=== PATIENT | male | born 1950 | race Two or more races ===

== ENCOUNTER 2020-11-26 01:33 | Emergency (ER) | payer MEDICARE, OTHER ==
[~2020-11-26] VITALS: Ht 167.6 cm; Wt 77.0 kg
[2020-11-26] MEDS ORDERED: ONDANSETRON 4MG ODT PO STA (02:06)
[2020-11-26] MEDS: ACETAMINOPHEN 325MG TABLET PO STA ×2 (02:21→02:28)
[2020-11-26 02:36] LABS: BASOPHILS % 0.8 % (0.0-2.0); EOSINOPHILS % 1.7 % (0.0-5.0); HEMATOCRIT. 40.1 % (42.0-52.0); HEMOGLOBIN. 13.6 g/dL (14.0-18.0); LYMPHOCYTES % 26.3 % (20.0-50.0); MEAN CORPUSCULAR HEMOGLOBIN 30.6 pg (28.0-32.0); MEAN CORPUSCULAR VOLUME 90.3 fL (80.0-94.0); MEAN PLATELET VOLUME 8.3 fl (7.4-10.4); MONOCYTES % 8.3 % (2.0-8.0); NEUTROPHILS % 62.9 % (40.0-76.0); PLATELET 323 x1000/uL (130-400); RED BLOOD CELL COUNT 4.44 mill/uL (4.7-6.1); RED CELL DISTRIBUTION WIDTH 13.4 % (11.6-14.6)
[2020-11-26 02:40] LABS: CHLORIDE 103 mEq/L (98-107)
[2020-11-26 02:44] LABS: PROTHROMBIN TIME 10.5 sec (9.6-11.0)
[2020-11-26 02:45] LABS: ETHANOL BLOOD < 10 mg/dL
[2020-11-26] MEDS ORDERED: HYDRALAZINE 20MG/ML VIAL IV ONE (02:45)
[2020-11-26 03:15] VITALS: BP 182/94
== END 2020-11-26 03:15 | disposition left against medical advice (07) ==
LOC: ER 01:33
DX: H57.11 Ocular pain, right eye (principal); I10 Essential (primary) hypertension
CPT/HCPCS: 36415; 80053; 80320; 85025; 85610; 86850; 86900; 86901; 99283; Q0162; G0480

== ENCOUNTER 2022-05-18 23:49 | Emergency (ER) | payer MEDICARE, OTHER ==
[~2022-05-18] VITALS: Ht 170.2 cm; Wt 78.9 kg
[2022-05-19 04:00] VITALS: BP 198/99
[2022-05-19] MEDS ORDERED: HYDROCODONE/ACETAMINOPHEN 5/325MG TABLET PO ONE (04:00)
== END 2022-05-19 04:41 | disposition home or self-care (01) ==
LOC: ER 23:49
DX: S20.211A Contusion of right front wall of thorax, initial encounter (principal); E11.9 Type 2 diabetes mellitus without complications; W01.0XXA Fall on same level from slipping, tripping and stumbling without subsequent striking against object, initial encounter; Y93.89 Activity, other specified; Y92.018 Other place in single-family (private) house as the place of occurrence of the external cause
CPT/HCPCS: 99283

== ENCOUNTER 2024-08-23 09:23 | Emergency (ER) | payer BC, MEDICAID, MEDICARE ==
[~2024-08-23] VITALS: Ht 167.6 cm; Wt 77.0 kg
[2024-08-23 09:24] VITALS: O2SAT 100
[2024-08-23 09:33] VITALS: BP 197/104; PULSE 85; RESP 16; TEMP 98.6; O2SAT 100
[2024-08-23 10:20] LABS: BASOPHILS % 0.9 % (0.0-2.0); HEMATOCRIT. 38.8 % (42.0-52.0); LYMPHOCYTES % 22.6 % (20.0-50.0); MEAN CORPUSCULAR HEMOGLOBIN 30.6 pg (28.0-32.0); MEAN CORPUSCULAR HGB CONC 33.5 g/dL (31.0-37.0); MEAN CORPUSCULAR VOLUME 91.4 fL (80.0-94.0); MEAN PLATELET VOLUME 8.7 fl (7.4-10.4); MONOCYTES % 7.8 % (2.0-8.0); NEUTROPHILS % 65.7 % (40.0-76.0); PLATELET 357 x1000/uL (130-400); RED BLOOD CELL COUNT 4.25 mill/uL (4.7-6.1); RED CELL DISTRIBUTION WIDTH 14.4 % (11.6-14.6)
[2024-08-23 10:26] LABS: CHLORIDE 106 mEq/L (98-107); POTASSIUM 4.4 mEq/L (3.5-5.1); SODIUM 140 mEq/L (136-145)
[2024-08-23 10:27] LABS: CARBON DIOXIDE 27 mEq/L (21-32)
[2024-08-23 10:28] LABS: CALCIUM 9.6 mg/dL (8.7-10.4)
[2024-08-23 10:32] LABS: CREATININE 1.3 mg/dL (0.6-1.3); GLUCOSE 201 mg/dL (70-105); UREA NITROGEN BLOOD 15 mg/dL (9-23)
[2024-08-23 10:33] LABS: TROPONIN I HIGH SENSITIVITY 9 ng/L (3.0-53)
[2024-08-23] MEDS ORDERED: AMLODIPINE 5MG TABLET PO ONE (11:00)
== END 2024-08-23 11:39 | disposition left against medical advice (07) ==
LOC: ER 09:23
DX: R42 Dizziness and giddiness (principal); H53.8 Other visual disturbances; I10 Essential (primary) hypertension; E11.9 Type 2 diabetes mellitus without complications
CPT/HCPCS: 36415; 71045; 80048; 84484; 85025; 93005; 99285